=== PATIENT | female | born 1930 | race Caucasian/White ===

== ENCOUNTER 2016-07-24 14:42 | Outpatient (CLI) | payer MEDICARE, MEDICAID ==
[2016-07-24 15:01] LABS: Hematocrit 31.3 % (36.0-47.0); Mean Platelet Volume 6.2 fL (7.4-10.4); Red Blood Cell (RBC) Count 2.71 mill/uL (4.20-5.40); White Blood Cell (WBC) Count 5.6 thou/uL (4.8-10.8)
[2016-07-24 15:47] LABS: Anion Gap 15 mmol/L (10-20); BUN (Urea Nitrogen) 63 mg/dL (9.8-20.1); Calc. Creatinine Clearance 0 mL/min (70-130); Calcium 9.7 mg/dL (7.8-10.44); Carbon Dioxide 23 mmol/L (23-31); Chloride 107 mmol/L (98-107); Estimated GFR-MDRD 28
== END 2016-07-24 14:43 | disposition home or self-care (01) ==
LOC: BURLAB 14:42
PROVIDERS: ATTEND Internal Medicine Hematology & Oncology
DX: N18.3 Chronic kidney disease, stage 3 (moderate) (principal); D63.1 Anemia in chronic kidney disease
CPT/HCPCS: 36415; 80048; 85027

== ENCOUNTER 2016-08-14 14:43 | Outpatient (CLI) | payer MEDICARE ==
[2016-08-14 15:04] LABS: Hematocrit 30.7 % (36.0-47.0); Mean Platelet Volume 6.8 fL (7.4-10.4); Red Blood Cell (RBC) Count 2.62 mill/uL (4.20-5.40); White Blood Cell (WBC) Count 4.7 thou/uL (4.8-10.8)
== END 2016-08-14 14:44 | disposition home or self-care (01) ==
LOC: BURLAB 14:43
PROVIDERS: ATTEND Internal Medicine Hematology & Oncology
DX: D63.1 Anemia in chronic kidney disease (principal)
CPT/HCPCS: 36415; 85027

== ENCOUNTER 2016-08-29 16:02 | Outpatient (CLI) | payer MEDICARE ==
[2016-08-29 16:31] LABS: Hematocrit 30.6 % (36.0-47.0); Mean Platelet Volume 6.3 fL (7.4-10.4); Red Blood Cell (RBC) Count 2.66 mill/uL (4.20-5.40); White Blood Cell (WBC) Count 6.9 thou/uL (4.8-10.8)
[2016-08-29 17:30] LABS: Anion Gap 13 mmol/L (10-20); BUN (Urea Nitrogen) 19 mg/dL (9.8-20.1); Calc. Creatinine Clearance 0 mL/min (70-130); Calcium 9.3 mg/dL (7.8-10.44); Carbon Dioxide 23 mmol/L (23-31); Chloride 110 mmol/L (98-107); Estimated GFR-MDRD 35
== END 2016-08-29 16:03 | disposition home or self-care (01) ==
LOC: BURLAB 16:02
PROVIDERS: ATTEND Internal Medicine Nephrology
DX: N18.4 Chronic kidney disease, stage 4 (severe) (principal); D63.1 Anemia in chronic kidney disease
CPT/HCPCS: 36415; 80048; 85027

== ENCOUNTER 2016-09-25 14:48 | Outpatient (CLI) | payer MEDICARE ==
[2016-09-25 15:07] LABS: Hemoglobin 8.3 g/dL (12.0-16.0); Mean Corpuscular HGB CONC 31.1 g/dL (32.0-36.0); Mean Corpuscular Hemoglobin 35.7 pg (27.0-31.0); Mean Platelet Volume 6.8 fL (7.4-10.4); Platelet Count 240 thou/uL (130-400); RBC Distribution Width 21.5 % (11.5-14.5); Red Blood Cell (RBC) Count 2.33 mill/uL (4.20-5.40)
== END 2016-09-25 14:49 | disposition home or self-care (01) ==
LOC: BURLAB 14:48
PROVIDERS: ATTEND Internal Medicine Hematology & Oncology
DX: N18.9 Chronic kidney disease, unspecified (principal); D63.1 Anemia in chronic kidney disease
CPT/HCPCS: 36415; 85027

== ENCOUNTER 2016-10-11 14:44 | Outpatient (CLI) | payer MEDICARE ==
[2016-10-11 15:06] LABS: Hemoglobin 8.7 g/dL (12.0-16.0); Mean Corpuscular HGB CONC 31.7 g/dL (32.0-36.0); Mean Corpuscular Hemoglobin 36.6 pg (27.0-31.0); Mean Platelet Volume 6.6 fL (7.4-10.4); Platelet Count 256 thou/uL (130-400); RBC Distribution Width 20.4 % (11.5-14.5); Red Blood Cell (RBC) Count 2.37 mill/uL (4.20-5.40); White Blood Cell (WBC) Count 5.8 thou/uL (4.8-10.8)
== END 2016-10-11 14:45 | disposition home or self-care (01) ==
LOC: BURLAB 14:44
PROVIDERS: ATTEND Internal Medicine Hematology & Oncology
DX: D63.1 Anemia in chronic kidney disease (principal)
CPT/HCPCS: 36415; 85027

== ENCOUNTER 2016-10-30 14:51 | Outpatient (CLI) | payer MEDICARE, MEDICAID ==
[2016-10-30 15:20] LABS: Hemoglobin 9.2 g/dL (12.0-16.0); Mean Corpuscular HGB CONC 30.8 g/dL (32.0-36.0); Mean Corpuscular Hemoglobin 36.1 pg (27.0-31.0); Mean Platelet Volume 7.2 fL (7.4-10.4); Platelet Count 383 thou/uL (130-400); RBC Distribution Width 23.8 % (11.5-14.5); Red Blood Cell (RBC) Count 2.54 mill/uL (4.20-5.40); White Blood Cell (WBC) Count 5.2 thou/uL (4.8-10.8)
== END 2016-10-30 14:52 | disposition home or self-care (01) ==
LOC: BURLAB 14:51
PROVIDERS: ATTEND Internal Medicine Hematology & Oncology
DX: N18.9 Chronic kidney disease, unspecified (principal); D63.1 Anemia in chronic kidney disease
CPT/HCPCS: 36415; 85027

== ENCOUNTER 2016-11-05 14:51 | Emergency (ER) | payer MEDICARE, MEDICAID ==
[2016-11-05] MEDS ORDERED: Ondansetron HCl/PF 4 MG/2 ML Vial ONE (15:15)
[2016-11-05 15:31] LABS: ALT (SGPT) 10 U/L (0-55); AST (SGOT) 18 U/L (5-34); Albumin 4.2 g/dL (3.4-4.8); Alkaline Phosphatase 38 U/L (40-150); Anion Gap 14 mmol/L (10-20); BUN (Urea Nitrogen) 45 mg/dL (9.8-20.1); CK (CPK) 46 U/L (29-168); Calc. Creatinine Clearance 0 mL/min (70-130); Calcium 9.1 mg/dL (7.8-10.44); Carbon Dioxide 25 mmol/L (23-31); Chloride 108 mmol/L (98-107); Estimated GFR-MDRD 28; Globulin 2.9 g/dL (2.4-3.5); Glucose 121 mg/dL (83-110); Lipase 29 U/L (8-78); Protein, Total 7.1 g/dL (5.8-8.1); Sodium 143 mmol/L (136-145)
[2016-11-05 15:33] LABS: #Basophils 0.1 thou/uL (0.0-0.2); #Eosinphils 0.1 thou/uL (0.0-0.7); #Lymphocytes 2.2 thou/uL (1.20-3.40); #Neutrophils 4.8 thou/uL (1.40-6.50); %Basophils 1.6 % (0.0-1.0); %Eosinophils 1.5 % (0.0-10.0); %Lymphocytes 26.8 % (21.0-51.0); %Monocytes 11.7 % (0.0-10.0); %Neutrophils 58.4 % (42.0-75.0); Anisocytosis MARKED = >30 cells (100X) (0-5/hpf); Basophilic Stippling SLIGHT = 1-2 cells (100X) (None Seen); Elliptocytes SLIGHT = 2-5 cells (100X) (0-1/hpf); Helmet Cells SLIGHT = 2-5 cells (100X) (0-1/hpf); Hemoglobin 8.8 g/dL (12.0-16.0); MDiff Complete? YES; Macrocytosis MODERATE=16-30 cells (100X) (0-5/hpf); Mean Corpuscular Hemoglobin 36.5 pg (27.0-31.0); Mean Platelet Volume 6.9 fL (7.4-10.4); Microcytosis SLIGHT = 6-15 cells (100X) (0-5/hpf); Platelet Count 295 thou/uL (130-400); RBC Distribution Width 22.3 % (11.5-14.5); Red Blood Cell (RBC) Count 2.41 mill/uL (4.20-5.40); Schistocytes SLIGHT = 2-5 cells (100X) (0-1/hpf); Tear Drops SLIGHT = 2-5 cells (100X) (0-1/hpf); White Blood Cell (WBC) Count 8.1 thou/uL (4.8-10.8)
[2016-11-05 16:11] LABS: Bilirubin Negative (Negative); Blood, Urine Negative (Negative); Clarity Clear (Clear); Glucose, Urine (Dipstick) Negative (Negative); Leukocyte Trace (Negative); Nitrite Negative (Negative); Protein, Urine (Dipstick) Negative (Neg-Trace); Urobilinogen 0.2 mg/dL (0.2-1.0); pH, Urine 5.5 (5.0-9.0)
[2016-11-05 16:22] LABS: Bacteria/HPF Rare-Few HPF (None Seen); Crystals/HPF None Seen HPF (Negative); Hyaline Casts/LPF NONE SEEN LPF (0-3 Hyaline); Other Casts/LPF None Seen LPF (0-3 Hyaline); Oval Fat Bodies/HPF None Seen HPF (None Seen); RBC/HPF None Seen HPF (0-3); Renal Epithelial None Seen HPF (0-3); Specific Gravity, Urine 1.008 (1.002-1.036); Sperm/HPF None Seen HPF (None Seen); Squamous Epithelial 0-3 HPF (0-3); Transitional Epithelial NONE SEEN HPF (0-3); Trichomonas/HPF None Seen HPF (None Seen); WBC/HPF 0-3 HPF (0-3); Yeast-All Forms None Seen HPF (None Seen)
== END 2016-11-05 17:14 | disposition home or self-care (01) ==
LOC: BURERS 14:51
DX: K52.9 Noninfective gastroenteritis and colitis, unspecified (principal); I13.0 Hypertensive heart and chronic kidney disease with heart failure and stage 1 through stage 4 chronic kidney disease, or unspecified chronic kidney disease; N18.2 Chronic kidney disease, stage 2 (mild); E78.5 Hyperlipidemia, unspecified; J44.9 Chronic obstructive pulmonary disease, unspecified; Z79.899 Other long term (current) drug therapy
CPT/HCPCS: 80053; 81003; 81015; 82550; 83690; 85025; 96361; 96374; J2405

== ENCOUNTER 2016-11-15 14:49 | Outpatient (CLI) | payer MEDICARE, MEDICAID ==
[2016-11-15 15:31] LABS: Anion Gap 13 mmol/L (10-20); BUN (Urea Nitrogen) 28 mg/dL (9.8-20.1); Calc. Creatinine Clearance 0 mL/min (70-130); Calcium 9.3 mg/dL (7.8-10.44); Carbon Dioxide 25 mmol/L (23-31); Chloride 109 mmol/L (98-107); Estimated GFR-MDRD 32; Glucose 97 mg/dL (83-110); Potassium 4.3 mmol/L (3.5-5.1); Sodium 143 mmol/L (136-145)
[2016-11-15 15:36] LABS: Anisocytosis MARKED = >30 cells (100X) (0-5/hpf); Band 2 % (5-11); Elliptocytes SLIGHT = 2-5 cells (100X) (0-1/hpf); Hypochromia SLIGHT = 6-15 cells (100X) (0-5/hpf); Lymphocytes 38 % (21-51); MDiff Complete? YES; Macrocytosis MARKED = >30 cells (100X) (0-5/hpf); Mean Corpuscular HGB CONC 30.4 g/dL (32.0-36.0); Mean Corpuscular Hemoglobin 35.2 pg (27.0-31.0); Mean Platelet Volume 6.8 fL (7.4-10.4); Microcytosis MODERATE=15-30 cells (100X) (0-5/hpf); Monocytes 10 % (0-10); Neutrophil 48 % (42-75); Platelet Count 298 thou/uL (130-400); RBC Distribution Width 24.2 % (11.5-14.5); Reactive Lymphocytes 2 % (0-10); Red Blood Cell (RBC) Count 2.57 mill/uL (4.20-5.40); Schistocytes SLIGHT = 2-5 cells (100X) (0-1/hpf); Spherocytes MODERATE= 6-15 cells (100X) (None Seen); Tear Drops SLIGHT = 2-5 cells (100X) (0-1/hpf); White Blood Cell (WBC) Count 5.1 thou/uL (4.8-10.8)
== END 2016-11-15 14:50 | disposition home or self-care (01) ==
LOC: BURLAB 14:49
PROVIDERS: ATTEND Internal Medicine Nephrology
DX: N18.3 Chronic kidney disease, stage 3 (moderate) (principal); D63.1 Anemia in chronic kidney disease
CPT/HCPCS: 36415; 80048; 85007; 85027

== ENCOUNTER 2016-12-11 14:44 | Outpatient (CLI) | payer MEDICARE, MEDICAID ==
[2016-12-11 15:07] LABS: Hemoglobin 7.9 g/dL (12.0-16.0); Mean Corpuscular HGB CONC 31.7 g/dL (32.0-36.0); Mean Platelet Volume 7.2 fL (7.4-10.4); Platelet Count 207 thou/uL (130-400); RBC Distribution Width 22.6 % (11.5-14.5); Red Blood Cell (RBC) Count 2.19 mill/uL (4.20-5.40); White Blood Cell (WBC) Count 6.8 thou/uL (4.8-10.8)
== END 2016-12-11 14:45 | disposition home or self-care (01) ==
LOC: BURLAB 14:44
PROVIDERS: ATTEND Internal Medicine Hematology & Oncology
DX: N18.9 Chronic kidney disease, unspecified (principal); D63.1 Anemia in chronic kidney disease
CPT/HCPCS: 36415; 85027

== ENCOUNTER 2017-01-01 14:38 | Outpatient (CLI) | payer MEDICARE, MEDICAID ==
[2017-01-01 14:57] LABS: Hemoglobin 9.2 g/dL (12.0-16.0); Mean Corpuscular HGB CONC 31.6 g/dL (32.0-36.0); Mean Corpuscular Hemoglobin 34.1 pg (27.0-31.0); Mean Platelet Volume 7.1 fL (7.4-10.4); Platelet Count 241 thou/uL (130-400); RBC Distribution Width 24.3 % (11.5-14.5); Red Blood Cell (RBC) Count 2.69 mill/uL (4.20-5.40); White Blood Cell (WBC) Count 5.1 thou/uL (4.8-10.8)
== END 2017-01-01 14:39 | disposition home or self-care (01) ==
LOC: BURLAB 14:38
PROVIDERS: ATTEND Internal Medicine Hematology & Oncology
DX: N18.9 Chronic kidney disease, unspecified (principal); D63.1 Anemia in chronic kidney disease
CPT/HCPCS: 36415; 85027

== ENCOUNTER 2017-01-22 14:38 | Outpatient (CLI) | payer MEDICARE, MEDICAID ==
[2017-01-22 14:50] LABS: Hemoglobin 8.5 g/dL (12.0-16.0); Mean Corpuscular HGB CONC 31.8 g/dL (32.0-36.0); Mean Corpuscular Hemoglobin 33.9 pg (27.0-31.0); Mean Platelet Volume 5.6 fL (7.4-10.4); Platelet Count 208 thou/uL (130-400); RBC Distribution Width 24.1 % (11.5-14.5); Red Blood Cell (RBC) Count 2.49 mill/uL (4.20-5.40); White Blood Cell (WBC) Count 5.5 thou/uL (4.8-10.8)
== END 2017-01-22 14:39 | disposition home or self-care (01) ==
LOC: BURLAB 14:38
PROVIDERS: ATTEND Internal Medicine Hematology & Oncology
DX: N18.9 Chronic kidney disease, unspecified (principal); D63.1 Anemia in chronic kidney disease
CPT/HCPCS: 36415; 85027

== ENCOUNTER 2017-02-12 15:07 | Outpatient (CLI) | payer MEDICARE, MEDICAID ==
[2017-02-12 15:48] LABS: Hemoglobin 9.1 g/dL (12.0-16.0); Mean Corpuscular HGB CONC 31.2 g/dL (32.0-36.0); Mean Corpuscular Hemoglobin 33.1 pg (27.0-31.0); Mean Platelet Volume 6.9 fL (7.4-10.4); Platelet Count 276 thou/uL (130-400); RBC Distribution Width 25.3 % (11.5-14.5); Red Blood Cell (RBC) Count 2.74 mill/uL (4.20-5.40); White Blood Cell (WBC) Count 7.9 thou/uL (4.8-10.8)
== END 2017-02-12 15:08 | disposition home or self-care (01) ==
LOC: BURLAB 15:07
PROVIDERS: ATTEND Internal Medicine Hematology & Oncology
DX: N18.9 Chronic kidney disease, unspecified (principal); D63.1 Anemia in chronic kidney disease
CPT/HCPCS: 36415; 85027

== ENCOUNTER 2017-03-05 14:52 | Outpatient (CLI) | payer MEDICARE, MEDICAID ==
[2017-03-05 15:20] LABS: Hemoglobin 7.6 g/dL (12.0-16.0); Mean Corpuscular Hemoglobin 33.6 pg (27.0-31.0); Mean Platelet Volume 6.6 fL (7.4-10.4); Platelet Count 295 thou/uL (130-400); RBC Distribution Width 25.4 % (11.5-14.5); Red Blood Cell (RBC) Count 2.26 mill/uL (4.20-5.40); White Blood Cell (WBC) Count 4.1 thou/uL (4.8-10.8)
== END 2017-03-05 14:53 | disposition home or self-care (01) ==
LOC: BURLAB 14:52
PROVIDERS: ATTEND Internal Medicine Hematology & Oncology
DX: N18.9 Chronic kidney disease, unspecified (principal); D63.1 Anemia in chronic kidney disease
CPT/HCPCS: 36415; 85027

== ENCOUNTER 2017-03-26 14:42 | Outpatient (CLI) | payer MEDICARE, MEDICAID ==
[2017-03-26 15:05] LABS: Hemoglobin 8.6 g/dL (12.0-16.0); Mean Corpuscular HGB CONC 31.9 g/dL (32.0-36.0); Mean Corpuscular Hemoglobin 33.9 pg (27.0-31.0); Mean Platelet Volume 5.4 fL (7.4-10.4); Platelet Count 201 thou/uL (130-400); RBC Distribution Width 24.6 % (11.5-14.5); Red Blood Cell (RBC) Count 2.54 mill/uL (4.20-5.40)
== END 2017-03-26 14:43 | disposition home or self-care (01) ==
LOC: BURLAB 14:42
PROVIDERS: ATTEND Internal Medicine Hematology & Oncology
DX: N18.9 Chronic kidney disease, unspecified (principal); D63.1 Anemia in chronic kidney disease
CPT/HCPCS: 36415; 85027

== ENCOUNTER 2017-04-04 14:48 | Outpatient (CLI) | payer MEDICARE, MEDICAID ==
[2017-04-04 15:31] LABS: Anion Gap 14 mmol/L (10-20); BUN (Urea Nitrogen) 51 mg/dL (9.8-20.1); Calc. Creatinine Clearance 0 mL/min (70-130); Calcium 8.9 mg/dL (7.8-10.44); Carbon Dioxide 21 mmol/L (23-31); Chloride 107 mmol/L (98-107); Estimated GFR-MDRD 29; Glucose 97 mg/dL (83-110); Potassium 5.9 mmol/L (3.5-5.1); Sodium 136 mmol/L (136-145)
[2017-04-04 15:42] LABS: Band 1 % (5-11); Elliptocytes MODERATE= 6-15 cells (100X) (0-1/hpf); Eosinophils 1 % (0-10); Hemoglobin 7.8 g/dL (12.0-16.0); Hypochromia MODERATE=16-30 cells (100X) (0-5/hpf); Lymphocytes 26 % (21-51); MDiff Complete? YES; Macrocytosis MODERATE=16-30 cells (100X) (0-5/hpf); Mean Corpuscular HGB CONC 31.7 g/dL (32.0-36.0); Mean Corpuscular Hemoglobin 33.8 pg (27.0-31.0); Mean Platelet Volume 7.2 fL (7.4-10.4); Microcytosis MODERATE=15-30 cells (100X) (0-5/hpf); Monocytes 5 % (0-10); Neutrophil 67 % (42-75); Platelet Count 197 thou/uL (130-400); RBC Distribution Width 23.4 % (11.5-14.5); Red Blood Cell (RBC) Count 2.31 mill/uL (4.20-5.40); Tear Drops SLIGHT = 2-5 cells (100X) (0-1/hpf); White Blood Cell (WBC) Count 5.8 thou/uL (4.8-10.8)
[2017-04-04 18:12] LABS: Phosphorus 3.4 mg/dL (2.3-4.7)
== END 2017-04-04 14:49 | disposition home or self-care (01) ==
LOC: BURLAB 14:48
PROVIDERS: ATTEND Internal Medicine Nephrology
DX: N18.3 Chronic kidney disease, stage 3 (moderate) (principal); D63.1 Anemia in chronic kidney disease
CPT/HCPCS: 36415; 80048; 83970; 84100; 85025